=== PATIENT | female | born 1975 | race Caucasian/White ===

== ENCOUNTER 2019-04-14 11:37 | Observation (INO) ==
[~2019-04-14 11:37] MED LIST: LIDOCAINE W/ SODIUM BICARB 0.5 ML SYR SUBD PRN
[2019-04-14] MEDS ORDERED: Lactated Ringers 1,000 ML PRIMARY IV ONE (11:57)
[2019-04-14] MEDS ORDERED: LIDOCAINE W/ SODIUM BICARB 0.5 ML SYR ONE (11:58)
[2019-04-14 12:14] LABS: URINE SPECIFIC GRAVITY - MAN 1.014
[2019-04-14] MEDS: Lactated Ringers 1,000 ML PRIMARY IV SCH ×2 (12:50→18:13)
[2019-04-14] MEDS ORDERED: ceFAZolin 1 GM VIAL ONE ×2 (13:47→16:16)
[2019-04-14] MEDS ORDERED: Sodium Chloride 0.9% 100 ML IV ONE (13:48)
[2019-04-14] MEDS ORDERED: ceFAZolin Inj 1 GM in Sodium Chloride 0.9% 100 ML IV ONE (15:42)
[2019-04-14] MEDS ORDERED: PROPOFOL 10 MG/1 ML (200 MG/20 ML) VIAL IV ONE (15:44)
[2019-04-14] MEDS ORDERED: DEXAMETHASONE PF 10 MG/1 ML VIAL ONE (15:45)
[2019-04-14] MEDS ORDERED: OXYMETAZOLINE 0.05% 15 ML NASAL SPRAY ONE (15:54)
[2019-04-14] MEDS ORDERED: LIDOCAINE HCL 1%/EPI 1:100,000 - 20 ML VIAL ONE (15:54)
[2019-04-14] MEDS ORDERED: Bacitracin Oint 14.2 gm tube 14 APPLIC/14.2 GM TUBE TOPICAL ONE (15:55)
[2019-04-14] MEDS ORDERED: ceFAZolin 1 GM VIAL IVP ONE (16:21)
[2019-04-14] MEDS ORDERED: fentaNYL Inj 100 MCG/2 ML VIAL ONE ×2 (16:30→17:16)
[2019-04-14] MEDS ORDERED: oxyCODONE-ACETAMINOPHEN 5-325 TAB PO PRN (17:07)
[2019-04-14] MEDS: fentaNYL Inj 100 MCG/2 ML VIAL IVP ONE ×2 (17:19→17:22)
[2019-04-14] MEDS: oxyCODONE-ACETAMINOPHEN 5-325 TAB PO PRN ×2 (18:47→23:05)
[2019-04-14] MEDS ORDERED: ONDANSETRON 4 MG/2 ML VIAL IVP PRN (19:28)
[2019-04-15] MEDS: oxyCODONE-ACETAMINOPHEN 5-325 TAB PO PRN (06:48)
[2019-04-15 06:59] VITALS: BP 130/88; RESP 24; TEMP 97.8; O2SAT 97
== END 2019-04-15 10:50 | disposition home or self-care (01) ==
LOC: OR 11:37 → MED/SURG 11:37 → OPS 11:38
PROVIDERS: ADMIT Otolaryngology; ATTEND Otolaryngology